=== PATIENT | female | born 1995 | race Native Hawaiian/Other Pacific Islander ===

== ENCOUNTER → 2020-07-27 | Outpatient (CLI) | payer OTHER ==
[2020-07-27 16:23] LABS: HEMATOCRIT 49.7 % (37.0-47.0); HEMOGLOBIN 16.9 g/dl (12.5-16.0); MEAN CELL VOLUME 89 fl (80.0-100.0); MEAN CORPUSCULAR HEMOGLOBIN 30 pg (27.0-31.0); MEAN CORPUSCULAR HGB CONC 34 g/dl (33.0-37.0); MEAN PLATELET VOLUME 9.1 fl (7.4-10.4); PLATELET COUNT 288 K/mm3 (130-400); RED BLOOD COUNT 5.57 M/mm3 (4.10-5.30); REDCELL DISTRIBUTION WIDTH-CV 11.3 % (11.5-14.5)
[2020-07-27 16:24] LABS: CREATINE KINASE 73 U/L (30-135)
[2020-07-27 16:38] LABS: TROPONIN-I < 0.012 ng/mL (0.000-0.035)
[2020-07-27 16:43] LABS: ERYTHROCYTE SEDIMENTATION RATE 13 mm/hr (0-20)
== END ==
LOC: COL.LAB 15:18
PROVIDERS: Internal Medicine Cardiovascular Disease
DX: I20.9 Angina pectoris, unspecified (principal)

== ENCOUNTER 2021-09-04 14:38 | Emergency (ER) | payer SELFPAY ==
[~2021-09-04] VITALS: Ht 165.1 cm; Wt 65.9 kg
[2021-09-04 15:29] VITALS: BP 124/88; PULSE 79
== END 2021-09-04 15:35 | disposition home or self-care (01) ==
LOC: COL.ER 14:38
DX: B34.9 Viral infection, unspecified (principal); Z20.822 Contact with and (suspected) exposure to COVID-19